=== PATIENT | male | born 1975 | race Caucasian/White ===

== ENCOUNTER 2025-03-06 16:10 | Inpatient (IN) | payer BC, SELFPAY ==
--- NOTE | ~2025-03-06 | US_ITS ---
CLINICAL HISTORY: Swelling; Erythema; Pain; r o DVT Venous duplex ultrasound right lower extremity Comparison: None provided Findings: The visualized deep veins are fully compressible with normal Doppler color flow and spectral tracings. No popliteal cyst. IMPRESSION: 1. Negative for right lower extremity deep vein thrombosis. This document has been electronically signed by: Parker Corey MD on 03/06/2025 21:13:51
[2025-03-06 16:34] VITALS: BP 137/75; PULSE 85; RESP 20; TEMP 36.9; O2SAT 97; BMI 28.5
--- NOTE | 2025-03-06 16:35 | ED_ITS ---
HPI - Skin/Abscess/Foreign Bdy General Chief complaint: Skin/Abscess/Foreign Body Stated complaint: Insect bite to R leg/sent from Time Seen by Provider: 03/06/25 20:04 Source: patient Mode of arrival: ambulatory Limitations: no limitations History of Present Illness ED Provider: Pepito RAZA HPI narrative: The patient is a 49-year-old otherwise healthy male presenting to the ED for evaluation of erythema, swelling, and tenderness of the right lower extremity. Patient reports he is from [place], travels for work, he was in [place] from 02/22 to 02/24 during which time he was bit by an unknown insect and developed erythema, swelling, and pain in the right medial ankle. Patient reports over the past 10 days the erythema, swelling, and pain has increased significantly, on patient was seen at urgent care and started on Keflex. The patient reports no improvement in symptoms and on Wednesday was started on Bactrim. The patient reports despite taking both antibiotics his symptoms have continued to worsen and he is now experiencing pain, erythema, swelling, and tenderness advancing up the medial aspect of the right leg to the right proximal thigh. The patient denies any associated fever/chills, nausea, vomiting, or other systemic complaint. The patient denies recent injury but does fly often for work. Related Data Allergies Allergy/AdvReac Type Severity Reaction Status Date / Time No Known Allergies Allergy Verified 03/06/25 16:37 Review of Systems 2 Review of Systems: Yes all other systems are reviewed and are negative PMFSH Social History Social History Smoked in Last 30 Days: No Use of substances other than those prescribed or required for medical reasons: No Advance Directives: No Advance Directives Information Provided: Yes Physical Exam 2 Vital Signs: Vital Signs: Last Vital Signs Temp 98.3 F 03/06/25 19:42 Pulse 52 03/06/25 19:42 Resp 16 03/06/25 19:42 BP 141/86 H 03/06/25 19:42 Pulse Ox 99 03/06/25 19:42 O2 Del Method Room Air 03/06/25 19:42 BMI result Body Mass Index 28.5 CONSTITUTIONAL: The patient appears non-toxic, well nourished and in no acute distress. Vital signs as documented. HEAD: Atraumatic, normocephalic. EYES: EOMs grossly intact, pupils equal, conjunctiva clear, no exudate. ENT: Nares patent, no discharge. Airway patent, no audible stridor, visible mucosa is pink and moist without noted lesions. NECK: trachea is midline, no obvious masses or gross abnormalities. CHEST: Symmetric movement, normal appearance. LUNGS: Non-labored work of breathing. CARDIAC: No evidence of hypoperfusion. ABDOMEN: Nondistended, no obvious injury. : Deferred. EXTREMITIES: There is marked erythema of the right medial ankle, calf, and thigh with associated tenderness. There is swelling of the right ankle and foot with a single approximate 1 cm intact bulla without purulence noted to the medial ankle just proximal to the medial malleolus, and a ruptured approximately 7mm bulla slightly inferior and posterior to the intact bulla. Distal CSM is intact,, 2+ DP/PT pulses. Moves all extremities spontaneously without reported pain. No obvious injury or deformity noted. NEURO: Alert and oriented x3, CN II-XII appear grossly intact. Cerebellar Functioning grossly intact. Speech clear and appropriate. SKIN: Warm, dry, color appropriate. No rashes or lesions noted. Course Course Course Narrative: This is an RME: Additional HPI, ROS, PE not included below will be deferred to primary provider. RME assessment and note performed by: Kat Cassidy PA-C This is a [id number], with no known medical problems, who presents to the ER with complaints of cellulitis to RLE. Reports that he was in [place] from 02/22-02/24, had several insect bites from these. Pt with extensive cellulitis, has been on Bactrim and Keflex for several days without any relief. Plan: Labs, further ER eval needed. Medications Administered Discontinued Medications Generic Name Dose Route Start Last Admin Trade Name Freq PRN Reason Stop Dose Admin Vancomycin HCl 2,000 mg in 500 mls @ 250 mls/hr 03/06/25 20:23 03/06/25 21:11 Vancomycin/Ns IV 03/06/25 22:22 250 mls/hr ONCE ONE Administration Cefazolin Sodium/Dextrose 2 gm in 50 mls @ 100 mls/hr 03/06/25 20:23 03/06/25 21:22 Ancef IV 03/06/25 20:52 Infused ONCE ONE Infusion Medical Decision Making Medical Decision Making MDM Narrative: 8:44 PM 03/06/2025 (Mike RAZA): The patient is a 49-year-old male presenting to the ED for evaluation of worsening right lower extremity swelling, erythema, and pain which has failed outpatient antibiotics with Bactrim and Keflex. The patient presumes he was bitten by a unknown insect while in [place] between 02/22 and 02/24. Exam reveals swelling, erythema, and tenderness/pain of the medial aspect of the entire right lower extremity to the level of the proximal thigh. Patient has no associated systemic symptoms. Patient's laboratory evaluation shows elevated ESR and CRP, however there is no leukocytosis, significant anemia, electrolyte abnormality, CECELIA, or lactic acidosis. Due to the patient not witnessing a bite, and tenderness advancing of the medial thigh, without fever, leukocytosis, or lactic acidosis, we will obtain ultrasound to rule out DVT. Additionally we will initiate IV antibiotic therapy with vancomycin and cefazolin. The patient has been advised that due to his failure of outpatient antibiotic therapy, admission and IV antibiotics with Infectious Disease consultation is recommended. The patient appears initially hesitant to follow these recommendations, advising he is to return to [place] on , and has work to complete for he leaves. Patient was educated on risks of failure to effectively treat this condition, including ulceration, osteomyelitis, need for partial amputation, decreased quality of life, and . Patient stated he understood these risks, is amenable to IV antibiotics and ultrasound in the ED tonight, however states he will need more time to decide if he is able to agree to the recommendation for admission. If patient ultimately refuses admission he will be discharged against medical advice. 9:50 PM 03/06/2025 (Mike RAZA): The patient's ultrasound is negative for DVT. Patient will complete IV antibiotics and we will reassess plan for disposition. Admission/Observation Consideration of admission/observation: Escalation of care including admission/observation considered Lab Data MDM Lab Attestation statement: I reviewed the patient's lab results. 03/06/25 17:43 03/06/25 17:43 Labs: Lab Results 03/06/25 Range/Units 17:43 WBC 8.4 (4.8-10.8) X10*3/uL RBC 4.20 L (4.60-5.80) X10*6/uL Hgb 13.6 L (14.0-18.0) g/dl Hct 39.2 L (42.0-52.0) % MCV 93.3 (80.0-98.0) fL MCH 32.4 (27.0-33.0) pg MCHC 34.7 (31.0-36.0) g/dl RDW 12.9 (11.0-16.0) % Plt Count 203 (160-400) X10*3/uL MPV 10.0 (9.4-12.4) fL Immature Gran % (Auto) 0.2 (0.0-0.4) % Neut % (Auto) 70.5 (45-73) % Lymph % (Auto) 16.7 L (20-40) % Mcpherson % (Auto) 12.2 H (2-11) % Eos % (Auto) 0.0 (0-4) % Baso % (Auto) 0.4 (0-2) % Lymph # (Auto) 1.4 (1.2-4.9) X10*3/uL Mcpherson # (Auto) 1.0 (0.1-1.2) X10*3/uL Eos # (Auto) 0.0 (0.0-0.4) X10*3/uL Baso # (Auto) 0.0 (0.0-0.2) X10*3/uL Abs Immat Gran (auto) 0.02 (0.00-0.03) X10*3/uL Absolute Neuts (auto) 5.9 (2.0-8.3) x10*3/uL Absolute Nucleated RBC 0.000 (0.0-0.012) X10*3/uL Nucleated RBC % (auto) 0.0 (0.0-0.2) /100WBC ESR 25 H (0-15) MM/HR Sodium 139 (135-145) mmol/L Potassium 4.4 (3.3-5.1) mmol/L Chloride 105 (96-108) mmol/L Carbon Dioxide 27 (22-29) mmol/L Anion Gap 11 L (12-20) BUN 11 (9-16) mg/dL Creatinine 1.00 (0.5-1.4) mg/dL Estim Creat Clear Calc 111.3 Estimated GFR > 60 Random Glucose 94 (60-115) mg/dL Lactic Acid 0.8 (0.5-2.0) mmol/L Calcium 9.0 (8.4-10.2) mg/dL Total Bilirubin 0.5 (0.0-1.0) mg/dL Direct Bilirubin 0.2 (0.0-0.5) mg/dL AST 27 (5-37) U/L ALT 32 (0-40) U/L Alkaline Phosphatase 67 (39-117) U/L C-Reactive Protein 10.47 H (< or = 0.50) mg/dL Total Protein 6.9 (6.5-8.0) g/dL Albumin 4.3 (3.5-5.0) g/dL Radiology Impression Discussion of test interpretation with radiology: I have reviewed the radiologist's reading. Radiologist Impression: CLINICAL HISTORY: Swelling; Erythema; Pain; r o DVT Venous duplex ultrasound right lower extremity Comparison: None provided Findings: The visualized deep veins are fully compressible with normal Doppler color flow and spectral tracings. No popliteal cyst. IMPRESSION: 1. Negative for right lower extremity deep vein thrombosis. This document has been electronically signed by: Parker Corey MD on 03/06/2025 21:13:51 Discharge Plan Discharge Clinical Impression: Cellulitis, Failure of outpatient treatment Patient Disposition: Admitted As Inpatient Print Language: Nigerian
[2025-03-06 17:52] LABS: MANUAL DIFF FLAG NO
[2025-03-06 17:54] LABS: Hematocrit 39.2 % (42.0-52.0); Hemoglobin 13.6 g/dl (14.0-18.0); Imm Gran Abs Auto 0.02 X10*3/uL (0.00-0.03); Imm Gran Pct Auto 0.2 % (0.0-0.4); Lymphocytes Absolute Auto 1.4 X10*3/uL (1.2-4.9); Mean Corpuscular HGB Conc 34.7 g/dl (31.0-36.0); Mean Corpuscular Hemoglobin 32.4 pg (27.0-33.0); Mean Corpuscular Volume 93.3 fL (80.0-98.0); NRBC Abs Auto 0.000 X10*3/uL (0.0-0.012); NRBC Pct Auto 0.0 /100WBC (0.0-0.2); Platelet Count 203 X10*3/uL (160-400); Red Blood Count 4.20 X10*6/uL (4.60-5.80); White Blood Count 8.4 X10*3/uL (4.8-10.8)
[2025-03-06 18:06] LABS: Alanine Aminotransferase 32 U/L (0-40); Albumin Level 4.3 g/dL (3.5-5.0); Alkaline Phosphatase 67 U/L (39-117); Anion Gap 11 (12-20); Aspartate Amino Transferase 27 U/L (5-37); Blood Urea Nitrogen 11 mg/dL (9-16); Calcium 9.0 mg/dL (8.4-10.2); Carbon Dioxide 27 mmol/L (22-29); Chloride 105 mmol/L (96-108); Creatinine Clr Calc Pharmacy 111.3; Estimated Glomerular Filt Rate > 60; Potassium 4.4 mmol/L (3.3-5.1); Sodium 139 mmol/L (135-145); Total Protein 6.9 g/dL (6.5-8.0)
--- OUTSIDE RECORDS SUMMARY | 2025-03-06 19:39 | XMS_ITS | Continuity of Care Document ---
Author Organization [facility] Address [address] [place] [address] Phone [phone] Allergies and adverse reactions Active Allergies Criticality Reaction Severity Comments Date No Known Propensity To Adverse Reactions Unable to assess criticality 02/11/2021 Immunizations CPT Code Status Date Vaccine Lot # [id number] Given 02/19/2019 Influenza Virus Vaccine, Split, Preserv Free, Intradermal Use Vital Signs Date Vital Result Comment 06/26/2019 10:15am Height 72 inches Body Temperature 96.0 F BP Systolic 138 mmHg BP Diastolic 98 mmHg
--- OUTSIDE RECORDS SUMMARY | 2025-03-06 19:39 | XMS_ITS | Encounter Summary ---
Author Organization [facility] Address [address] [place] [address] Care Team Providers Care Special Police Officer Name Role Phone No, Physician Primary Care Provider Patel Olmedo MD Primary Care Provider [phone] Encounter Details Date Type Department Care Team (Latest Contact Info) Description 02/10/2018 Transcribe Orders [facility] [address] [place] [address] Nikki Bran, CUSTOD[facility] [employer] [address], [place] [id number] Swelling of knee joint, unspecified laterality (Primary Dx) Social History Tobacco Use Types Packs/Day Years Used Date Smoking Tobacco: Never Smokeless Tobacco: Never Alcohol Use Standard Drinks/Week Comments Yes 0 (1 standard drink = 0.6 oz pur e alcohol) Sex and Gender Information Value Date Recorded Sex Assigned at Not on file Legal Sex Male 7:35 AM EDT Gender Identity Male 02/17/2018 4:25 PM EDT Sexual Orientation Straight 02/17/2018 4: 25 PM EDT documented as of this encounter Plan of Treatment Upcoming Encounters Date Type Department Care Team (Late st Contact Info) Description 03/12/2025 9:45 AM EDT Office Visit [facility] [address] [place] [id number] Patel Owen MD [address] [place], [place] [id number] documented as of this encounter Visit Diagnoses Diagnosis Swelling of knee joint, unspecified laterality- Primary documented in this encounter Care Teams Special Police Officer Relationship Specialty Start Date End Date No, Physician [facility] PCP - General 07/08/16 07/12/23 Patel Owen MD [address] [place] [address] PCP - General Family Medicine 07/13/23 documented as of this encounter
--- OUTSIDE RECORDS SUMMARY | 2025-03-06 19:39 | XMS_ITS | Clinical Summary ---
Author Organization [facility] Address [id number] [place] [address] Phone Care Team Providers Care Hand Bulldozer Name Role Phone Unavailable Primary Care Provider Unavailabl e Allergies No known active allergies Medications * This document contains information received from the source organization and may not represent a complete record from that organization. No known medications Active Problems Problem Noted Date Diagnosed Date Impacted cerumen of right ear 11/25/2022 Assessment & Plan (11/25/2022 9:25 AM EDT): Will irrigate right ear in clinic today. Screening for colon cancer 11/25/2022 Assessment & Plan (11/25/2022 9:25 AM EDT): Patient will return for CPE and have colonoscopy referral then. Concussion with no loss of consciousness 023 Assessment & Plan (11/25/2022 9:25 AM EDT): Reviewed supportive care measures Resolved Problems Problem Noted Date Diagnosed Date Resolved Date Functional diarrhea 11/25/2020 11/26/19 23 Overview (11/25/2020): Has traveled Checking bloodwork stool studies Imodium and probiotic Assessment & Plan (11/25/2020 3:37 PM EDT): Had traveled recently Checking bloodwork and stool studies Probiotic and imodium. Quadriceps weakness 04/19/2020 11/26/19 23 Difficulty in walking 09/12/20192022 Immunizations Immunization Administration Dates Next Due Influenza, Quadrivalent, PF (i.e. Fluzone, FluLaval, Afluria, Fluarix) 03/07/2020,03/12/2019,04/09/2018 Family History Relation Status Comments Father Alive Mother Alive Social History Tobacco Use Types Packs/Day Years Used Date Smoking Tobacco: Never Smokeless Tobacco: Never Tobacco Cessation:Counseling Given: Not Answered Alcohol Use Standard Drinks/Week Comments Yes 2 (1 standard drink = 0.6 oz pur e alcohol) PHQ-2 Answer Date Recorded Patient Health Questionnaire-2 Score 0 11/25/2022 Sex and Gender Information Value Date Recorded Sex Assigned at Not on file Legal Sex Male 12:43 PM CDT Gender Identity Not on file Sexual Orientation Not on file Last Filed Vital Signs Vital Sign Reading Time Taken Comments Blood Pressure 112/82 11/25/2022 8:50 AM EDT Pulse 69 11/25/2022 8:50 AM EDT Temperature 36.3 C (97.3 F) 11/25/2022 8:50 AM EDT Respiratory Rate 20 11/25/2022 8:50 AM EDT Oxygen Saturation 97% 11/25/2022 8:50 AM EDT Inhaled Oxygen Concentration - - Weight 98.9 kg (218 lb) 11/25/2022 8:50 AM EDT Height 185.4 cm (6' 1 ) 11/25/2022 8:50 AM EDT Body Mass Index 28.76 11/25/2022 8:50 AM EDT Plan of Treatment Health Maintenance Due Date Last Done Comments CRC: CT Colonography 1976 CRC: Cologuard 1976 CRC: Colonoscopy 1976 CRC: Done/Done-CPS 1976 CRC: Sigmoidoscopy 1976 CRC: iFOB/FIT 1976 Colorectal Cancer Screening 1976 HIV Screening 1976 Hepatitis C Screening 1976 DTaP,Tdap,and Td Vaccines (1 - Tdap) 11/12/1995 Hepatitis B Vaccines (1 of 3 - 19+ 3-dose series) 11/12/1995 Type 2 Diabetes Screening 01/11/2022 01/11/2019 Lipid Disorders Screening 01/12/2024 01/11/2019 COVID-19 Vaccine ( - 2023-2 5 season) 2025 Influenza Vaccine (#1) 2025 0, 03/12/2019, 04/09/2018 HIB Vaccines Aged Out No longer eligi ble based on patient's age to complete this topic Hepatitis A Vaccines Aged Out No long er eligible based on patient's age to complete this topic Meningococcal B Vaccine Aged Out No l onger eligible based on patient's age to complete this topic Meningococcal Vaccine Aged Out No jorge a aris eligible based on patient's age to complete this topic Pneumococcal Vaccine Pediatrics (0-5 Yrs) and At-Risk Patients (6-49Yrs) Aged Out No longer kate gible based on patient's age to complete this topic Procedures Procedure Name Priority Date/Time Associated Diagnosis Comments HEMOGLOBIN A1C Routine 01/11/2019 6:17 AM CDT LIPID PANEL WITH REFLEX TO DIRECT LDL Routine 01/11/2019 6:17 AM CDT from Last 3 Months or Most Recently Relevant to Health Maintenance Results * Hemoglobin A1c (01/11/2019 6:17 AM CDT) HGBA1C 5.3 4.0 - 6.4 % Comment: According to the recommendations of the [employer]: A1C% <5.7% Absence of diabetes A1C% 5.7 to 6.4% Increased risk for diabetes (prediabetes) A1C% > or = 6.5% Suitable for diagnosis of diabetes Currently no consensus exists for use of HgbA1C% for the diagnosis of diabetes in children. Standards of Medical Care in Diabetes -2015. 01/11/2019 6:17 AM CDT us Historical Provider LAB BLOOD ORDERABLES Lori l Result * (ABNORMAL) Lipid panel (01/11/2019 6:17 AM CDT) CHOLESTEROL 236.0(H) 100.0 - 199.0 mg/dL HDL 71.0 40.0 - 125.0 mg/dL TRIGLYCERIDE 193.0(H) 40.0 - 150.0 mg/dL Comment: If the triglycerides are over 400 mg/dL, a direct measured LDL will be performed. If the triglycerides are over 1293 mg/dL an LDL will not be performed. CHOL/HDL 3.3 3.2 - 5.0 Ratio TRIG/HDL RATIO 2.7(H) 0.0 - 2.0 01/11/2019 6:17 AM CDT Historical Provider LAB BLOOD ORDERABLES Lori l Result from Last 3 Months or Most Recently Relevant to Health Maintenance Insurance [employer] [facility] [place]
--- OUTSIDE RECORDS SUMMARY | 2025-03-06 19:39 | XMS_ITS | Clinical Summary ---
Author Organization [facility] Address [address] [place] [address] Care Team Providers Care Boarding Specialist Name Role Phone Patel Owen MD Primary Care Provider +1- [phone] Allergies No known active allergies Medications syringe,safety, disposal unit 3 mL SyrgIndications :Low testosterone in male 1 each by Miscellaneous route every 14 (fourteen) days . 100 each 01/03/20 24 Active safety needles 18 gauge x 1 NdleIndications :Low testosterone in male 1 each by Miscellaneous route every 14 (fourteen) days . 100 each 01/03/20 24 Active safety needles 23 gauge x 1 NdleIndications :Low testosterone in male 1 each by Miscellaneous route every 14 (fourteen) days . 50 each 02/27/20 25 Active testosterone cypionate (DEPOTESTOTERON E CYPIONATE) 100 mg/mL injectionIndica tions:Hypogonad ism in male,Low testosterone in male Inject 1.5 mL (150 mg total) into the shoulder, thigh, or buttocks every 14 (fourteen) days (Days supply per fill: 90) . 10 mL 03/02/20 25 025 Active safety needles 23 gauge x 1 NdleIndications :Low testosterone in male 1 each by Miscellaneous route every 14 (fourteen) days . 50 each 11/01/19 25 025 Discontinue d(Reorder (Suppress CancelRx Message to Pharmacy)) testosterone cypionate (DEPOTESTOTERON E CYPIONATE) 100 mg/mL injectionIndica tions:Hypogonad ism in male,Low testosterone in male Inject 1.5 mL (150 mg total) into the shoulder, thigh, or buttocks every 14 (fourteen) days (Days supply per fill: 90) . 10 mL 11/10/19 25 025 Discontinue d(Reorder (Suppress CancelRx Message to Pharmacy)) testosterone cypionate (DEPOTESTOTERON E CYPIONATE) 100 mg/mL injectionIndica tions:Hypogonad ism in male,Low testosterone in male Inject 1.5 mL (150 mg total) into the shoulder, thigh, or buttocks every 14 (fourteen) days (Days supply per fill: 90) . 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 According to him no swelling, no pain. I have reviewed his physical therapy notes and he has been doing therapy with no problem. His initial inflammatory markers done on the last visit with me were normal. At this point he has completed more than 2 months of oral antibiotic with doxycycline p.o. considering stability of symptoms and duration of antimicrobial therapy I think we can stop the p.o. antimicrobial and observe symptomatically. I have explained that there is a chance of recurrence. However, based on his clinical stability and normal inflammatory markers I do not see a need to continue oral doxycycline. Plan -Stop doxycycline. Follow-up with infectious diseases as needed. Assessment & Plan (04/05/2020 12:34 PM EDT): Postoperative and recurrent septic arthritis of the right knee. Current clinical course seems to be consistent with MRSE right knee infection. This is considering the indolent clinical course as well as negative synovial fluid cultures. Having said that, without a positive culture it is hard to say 100% that this is the actual cause of infection. The patient is doing much better, he is not not experiencing any knee pain or knee swelling. At this point he has almost received 4 weeks of doxycycline therapy. Based on orthopedics note, on his last debridement there was removal of some of the old suture material on his knee. I have discussed with the patient that due to persistence of some retained foreign material on his knee there is a risk of infection recurrence. We do not have any clinical tool to predict recurrence. We have also discussed the data on oral antimicrobials for the treatment of septic arthritis and emphasized that he is on a highly bioavailable antibiotic. However, due to recurrence and based on clinical data he may require a longer therapy than what he has completed at this time. Plan -As the patient is doing well, I do not think there is any point on pursuing IV antibiotics at this point. -I will obtain CRP and sedimentation rate to track inflammation. -Continue doxycycline 100 mg twice daily for 1 more month. I have discussed with the patient that depending on how he does clinically we may consider 2 to 3 months of oral antibiotic therapy total. Encounters Date Type Department Care Team Description 02/27/2025 Refill [facility] [address] [address] Patel Owen MD Hypogonadism in male; Low testosterone in male 02/26/2025 Refill [facility] [address] [facility] [address] [place] [address] Patel Owen MD Low testosterone in male 02/21/2025 Documentation [facility] [address] [facility] [address] [place] [address] Marcela Ga CMA 02/13/2025 Refill [facility] [address] [place] [address] Patel Owen MD Hypogonadism in male; Low testosterone in male from Last 3 Months Immunizations Immunization Administration Dates Next Due INFLUENZA IIV4 6MO OR > FLUARIX/FLUZONE/AFLURIA 03042 03/07/2020,03/12/2019 Influenza, Injectable, Quadrivalent, Preservativ e Free 04/09/2018 Family History Medical History Relation Comments Heart attack Father Relation Status Comments Father Social History Tobacco Use Types Packs/Day Years Used Date Smoking Tobacco: Never Smokeless Tobacco: Never Tobacco Cessation:Counseling Given: Not Answered Alcohol Use Standard Drinks/Week Comments Yes 0 (1 standard drink = 0.6 oz pur e alcohol) Overall Financial Resource Strain (CARDIA) Answe r Date Recorded How hard is it for you to pa y for the very basics like food, housing, medical care, and heating? Not hard at all 07/05/2024 PHQ-2 Answer Date Recorded PHQ-9 Total Score 1 07/05/2024 Hunger Vital Sign Answer Date Recorded Within the past 12 months, y ou worried that your food would run out before you got the money to buy more. Never true 07/05/19 25 Within the past 12 months, t he food you bought just didn't last and you didn't have money to get more. Never true 07/05/2024 PRAPARE - Transportation Answer Date Re corded In the past 12 months, has l ack of transportation kept you from medical appointments or from getting medications? No 06/21 In the past 12 months, has l ack of transportation kept you from meetings, work, or from getting things needed for daily living? No 07/05/2024 Housing Stability Vital Sign Answer Braeden e Recorded In the last 12 months, was t here a time when you were not able to pay the mortgage or rent on time? Patient declined 07/13/19 24 Number of Places Lived in the Last Year Not on f ile 07/13/2023 In the last 12 months, was t here a time when you did not have a steady place to sleep or slept in a long-term (including now)? Patient declined 07/13/2023 Housing Stability Vital Sign Answer Braeden e Recorded In the last 12 months, was t here a time when you were not able to pay the mortgage or rent on time? No 07/05/2024 Number of Times Moved in the Last Year Not on fi le 07/05/2024 At any time in the past 12 m [facility], were you homeless or living in a long-term (including now)? No 07/05/2024 Sex and Gender Information Value Date Recorded Sex Assigned at Not on file Legal Sex Male 7:35 AM EDT Gender Identity Male 02/17/2018 4:25 PM EDT Sexual Orientation Straight 02/17/2018 4: 25 PM EDT Last Filed Vital Signs Vital Sign Reading Time Taken Comments Blood Pressure 138/88 11/09/2024 8:08 AM EDT Pulse 57 11/09/2024 8:08 AM EDT Temperature 36.8 C (98.2 F) 09/23/2023 9:42 AM EDT Respiratory Rate 18 04/09/2023 3:10 PM EDT Oxygen Saturation 96% 11/09/2024 8:08 AM EDT Inhaled Oxygen Concentration - - Weight 97.7 kg (215 lb 6.4 oz) 11/09/2024 8:08 A M EDT Height 188 cm (6' 2 ) 11/09/2024 8:08 AM EDT Body Mass Index 27.66 11/09/2024 8:08 AM EDT Plan of Treatment Upcoming Encounters Date Type Department Care Team (Late st Contact Info) Description 03/12/2025 9:45 AM EDT Office Visit [facility] [address] [place] [phone] Patel Owen MD [address] [place] [address] Health Maintenance Due Date Last Done Comments CT Colonography 1976 Colonoscopy 1976 Fecal occult blood test (FOBT,FIT) 1976 Flexible sigmoidoscopy 1976 COVID-19 Vaccine ( season) 2025 Influenza Vaccine (#1) 2025 , 02/21/2020, 03/12/2019, Additional history exists Depression Screening/Follow-Up (PHQ-2/9) 07/05/2025 07/05/2024 Hepatitis C Screening 09/07/2025 Postpo luca from 1994 (Patient Refused) Tetanus: Every 10yrs 09/07/2025 06/21/2011, 07/03/19 11 Postponed from 06/21/2021 (Patient Refused) Wellness Visit 09/07/2025 09/07/2024, 07/13/2023 PSA Level 09/07/2026 09/07/2024, 09/17/2023 Colorectal Cancer Screening/Monitoring 09/22/2026 Fecal DNA 09/22/2026 09/23/2023 Orthopox Vaccine Completed 06/25/2011, 04/09/2011 HIV Screening Completed 11/12/2023 Pneumococcal Vaccine: Ped or At-Risk Aged Out No longer eligible based on patient's age to complete this topic Procedures Procedure Name Priority Date/Time Associated Diagnosis Comments PSA, TOTAL AND FREE Routine 09/07/2024 10:28 AM EDT Hyperlipidemia, unspecified hyperlipidemia type Annual physical exam HIV 1/2 SCREEN (4TH GENERATION) Routine 11/12/2023 12:12 PM EDT Possible exposure to STD COLOGUARD Routine 09/23/2023 7:24 AM EDT Screening for colon cancer from Last 3 Months or Most Recently Relevant to Health Maintenance Results * PSA, Total and Free (09/07/2024 10:28 AM EDT) Psa, Total (Quest) 1.0 < OR = 4.0 ng/mL [facility] Psa, Free (Quest) 0.3 ng/mL [facility] Psa Percent Free (Quest) 30 >25 % (calc) [facility] Comment: PSA(ng/mL) Free PSA(%) Estimated(x) Probability of Cancer(as%) 0-2.5 (*) Approx. 1 2.6-4.0(1) 0-27(2) 24(3) 4.1-10(4) 0-10 56 11-15 28 16-20 20 21-25 16 >or =26 8 >10(+) N/A >50 References:(1)Edgardoona et al.:Urology 60: 469-474 (2002) (2)Catalona et al.:J.Urol 168: 922-925 (2001) Free PSA(%) Sensitivity(%) Specificity(%) < or = 25 85 19 < or = 30 93 9 (3)Edgardoona et al.:MIGEL 277: 0862-4495 (1996) (4)Catalona et al.:MIGEL 279: 1920-7296 (1998) (x)These estimates vary with age, ethnicity, family history and LESLIE results. (*)The diagnostic usefulness of % Free PSA has not been established in patients with total PSA below 2.6 ng/mL (+)In men with PSA above 10 ng/mL, prostate cancer risk is determined by total PSA alone. The Total PSA value from this assay system is standardized against the equimolar PSA standard. The test result will be approximately 20% higher when compared to the WHO-standardized Total PSA (Siemens assay). Comparison of serial PSA results should be interpreted with this fact in mind. PSA was performed using the [employer] [place] Immunoassay method. Values obtained from different assay methods cannot be used interchangeably. PSA levels, regardless of value, should not be interpreted as absolute evidence of the presence or absence of disease. Blood BLOOD SPECIMEN / Unknown 09/07/2024 10:28 AM EDT 09/07/2024 10:29 AM EDT Narrative [facility] - 09/08/2024 2:37 PM EDT FASTING:NO FASTING: NO us Evette Parikh DO LAB BLOOD ORDERABLES Final Result [address] [address], * HIV Antibody (HIV1/HIV2) (11/12/2023 12:12 PM EDT) HIV 1-2 Screen Negative Negative 11/12/2023 5:26 PM EDT [facility] Blood BLOOD SPECIMEN / Unknown Venipuncture / Unknown 11/12/2023 12:12 PM EDT 11/12/2023 12:12 PM EDT Narrative [facility] - 11/12/2023 5:26 PM EDT This assay screens for the presence of HIV-1, HIV-2 antibodies and for the presence of HIV-1 antigen. Test performed using BerylliumAS immunoassay system us Patel Owen MD LAB BLOOD ORDERABLES Final Result [facility] [address] [place] [address] * Cologuard (09/23/2023 7:24 AM EDT) Cologuard Negative Negative 09/30/2023 5:49 PM EDT [facility] (CLIA #:[id number]) Comment: NEGATIVE TEST RESULT. A negative Cologuard result indicates a low likelihood that a colorectal cancer (CRC) or advanced adenoma (adenomatous polyps with more advanced pre-malignant features) is present. The chance that a person with a negative Cologuard test has a colorectal cancer is less than 1 in 1500 (negative predictive value >99.9%) or has an advanced adenoma is less than 5.3% (negative predictive value 94.7%). These data are based on a prospective cross-sectional study of 10,000 individuals at average risk for colorectal cancer who were screened with both Cologuard and colonoscopy. (Bree Adam et al, N Engl J Med 2014;370(14):8715-6573) The normal value (reference range) for this assay is negative. COLOGUARD RE-SCREENING RECOMMENDATION: Periodic colorectal cancer screening is an important part of preventive healthcare for asymptomatic individuals at average risk for colorectal cancer. Following a negative Cologuard result, the [place] Cancer Society and U.S. Multi-Society Task Force screening guidelines recommend a Cologuard re-screening interval of 3 years. References: [place] [employer] Guideline for Colorectal Cancer Screening: https://www.cancer.org/cancer/fjnhy-ehqvaq-tyxgfh/qgehmdoio-lrkrivyjv-aiqffox/ac s-rec ommendations.html.; Ronni PAL, Remi CUI, eRinaldo PotterK, Colorectal Cancer Screening: Recommendations for Physicians and Patients from the U.S. Multi-Society Task Force on Colorectal Cancer Screening , Am J Gastroenterology 2017; 112:0396-5005. TEST DESCRIPTION: Composite algorithmic analysis of stool DNA-biomarkers with hemoglobin immunoassay. Quantitative values of individual biomarkers are not reportable and are not associated with individual biomarker result reference ranges. Cologuard is intended for colorectal cancer screening of adults of either sex, 45 years or older, who are at average-risk for colorectal cancer (CRC). Cologuard has been approved for use by the U.S. FDA. The performance of Cologuard was established in a cross sectional study of average-risk adults aged 50-84. Cologuard performance in patients ages 45 to 49 years was estimated by sub-group analysis of near-age groups. Colonoscopies performed for a positive result may find as the most clinically significant lesion: colorectal cancer [4.0%], advanced adenoma (including sessile serrated polyps greater than or equal to 1cm diameter) [20%] or non- advanced adenoma [31%]; or no colorectal neoplasia [45%]. These estimates are derived from a prospective cross-sectional screening study of 10,000 individuals at average risk for colorectal cancer who were screened with both Cologuard and colonoscopy. (Bree Salazar. et al, N Engl J Med 2014;370(14):0804-9775.) Cologuard may produce a false negative or false positive result (no colorectal cancer or precancerous polyp present at colonoscopy follow up). A negative Cologuard test result does not guarantee the absence of CRC or advanced adenoma (pre-cancer). The current Cologuard screening interval is every 3 years. ([place] [employer] Society and U.S. Multi-Society Task Force). Cologuard performance data in a 10,000 patient pivotal study using colonoscopy as the reference method can be accessed at the following location: www.[employer]otomo/results. Additional description of the Cologuard test process, warnings and precautions can be found at www.DDStocksogTakeacoderrd.com. Stool specimen (specimen) RECTUM STRUCTURE / Unknown 09/23/2023 7:24 AM EDT 09/24/2023 11:53 AM EDT us Patel Owen MD LAB BLOOD ORDERABLES Final Result [facility] (CLIA #:[id number]) [address] [place], [place] [id number], from Last 3 Months or Most Recently Relevant to Health Maintenance [place] [address] [place] [address] [facility]/PREF/HMO/PPO Care Teams Boarding Specialist Relationship Specialty Start Date End Date Patel Owen MD [address] [facility] [address] [place] [address] PCP - General Family Medicine 07/13/23
--- OUTSIDE RECORDS SUMMARY | 2025-03-06 19:39 | XMS_ITS | Encounter Summary ---
Author Organization [facility] Address [address] [place] [address] Care Team Providers Care Charter Pilot Name Role Phone Patel Owen MD Primary Care Provider +1- [phone] Reason for Visit * Reason Onset Date Comments Medication Refill 02/27/2025 Encounter Details Date Type Department Care Team (Late st Contact Info) Description 02/27/[address] [facility] Primary Care Physicians [address] [place] [address] Patel Owen MD [address] [place] [address] Hypogonadism in male; Low testosterone in male Social History Tobacco Use Types Packs/Day Years [...] place to sleep or slept in a penitentiary (including now)? Patient declined 07/13/2023 Housing Stability Vital Sign Answer Braeden e Recorded In the last 12 months, was t here a time when you were not able to pay the mortgage or rent on time? No 07/05/2024 Number of Times Moved in the Last Year Not on fi le 07/05/2024 At any time in the past 12 m [facility], were you homeless or living in a penitentiary (including now)? No 07/05/2024 Sex and Gender Information Value Date Recorded Sex Assigned at Not on file Legal Sex Male 7:35 AM EDT Gender Identity Male 02/17/2018 4:25 PM EDT Sexual Orientation Straight 02/17/2018 4: 25 PM EDT documented as of this encounter Miscellaneous Notes * Telephone Encounter - Marcela Ga CMA - 03/01/2025 7:46 AM EDT Last Office Visit: 11/09/24 Last Refill: 02/16/25 * Telephone Encounter - Fifi Wilhelm LPN - 02/27/2025 1:10 PM EDT The patient called in to report that his insurance will not pay for his testosterone cypionate. He states there is no diagnose code attached to script. So the insurance denied payment. documented in this encounter Plan of Treatment Upcoming Encounters Date Type Department Care Team (Late st Contact Info) Description 03/12/2025 9:45 AM EDT Office Visit [facility] Primary [facility] Physicians [address] [facility] [address] [place] [address] Patel Owen MD [address] [facility] [address] [place] [address] documented as of this encounter Visit Diagnoses Diagnosis Hypogonadism in male Low testosterone in male documented in this encounter Additional Health Concerns Assessment Noted Time PHQ-9 Depression Total Score: 1 07/05/19 8:10 AM EST PHQ-2 Depression Total Score: 0 07/05/19 8:10 AM EST documented as of this encounter Care Teams Charter Pilot Relationship Specialty Start Date End Date Patel Owen MD [address] [facility] [address] [place] [address] PCP - General Family Medicine 07/13/23 documented as of this encounter
--- OUTSIDE RECORDS SUMMARY | 2025-03-06 19:39 | XMS_ITS | Encounter Summary ---
Author Organization [facility] Address [address] [place] [address] Care Team Providers Care Eyelet Machine Operator Name Role Phone No, Physician Primary Care Provider Patel Olmedo MD Primary Care Provider +1- [phone] Reason for Referral * Evaluate and Treat (Routine) - Closed Specialty Diagnoses / Procedures Referred By Contac t Referred To Contact Infectious Diseases Diagnoses Infection of knee (HCC) Lokesh Alas MD [address] [place] [address] Phone: tel: fax: [facility] Physicians Infectious Disease [address] [facility] [address] [place] [address] Phone: tel: fax: Referral ID Status Reason Start Date Expiration Date Visits Re quested Visits Authorized [id number] Closed 03/25/2020 03/25/2021 1 1 Encounter Details Date Type Department Care Team (Latest Contact Info) Description 03/25/2020 Transcribe Orders [facility] Physicians Infectious Disease [address] [facility] [address] [place] [id number] Bibi Bowen MA Infection of knee (HCC) (Primary Dx) Social History Tobacco Use Types [...] 9:45 AM EDT Office Visit [facility] Primary Care Physicians [address] [address] Patel Owen MD [address] [address] Scheduled Referrals Name Type Priority Associated Diagnoses Order Schedule Ambulatory referral to Infectious Disease Outpatient Referral Routine Infection of knee (HCC) 1 Occurrences starting 03/25/2020 until 03/25/2021 documented as of this encounter Visit Diagnoses Diagnosis Infection of knee (HCC)- Primary documented in this encounter Care Teams Eyelet Machine Operator Relationship Specialty Start Date End Date No, Physician [facility] PCP - General 07/08/16 07/12/23 Patel Owen MD [address] [address] PCP - General Family Medicine 07/13/23 documented as of this encounter
--- OUTSIDE RECORDS SUMMARY | 2025-03-06 19:39 | XMS_ITS | Clinical Summary ---
Author Organization [facility] Address [address] [place] [address] [place] [address] Care Team Providers Care Vegetable Vendor Name Role Phone Ronnell Kim MD Primary Care Provider Unavai lable Allergies No known active allergies Medications Testosterone Cypionate 100 MG/ML Solution Inject 2 mL under the skin every 14 days. Active fluticasone 50 MCG/ACT Suspension nasal spray SPRAY 2 SPRAYS BY NASAL ROUTE DAILY 48 mL 3 10/26/2023 Active Azelastine HCl 137 MCG/SPRAY Solution nasal spray USE 2 SPRAYS IN EACH NOSTRIL DAILY, INCREASE TO TWICE A DAY NEEDED FOR DRAINAGE. 90 mL 11/12/2023 Active Active Problems No known active problems Family History Medical History Relation Name Comments Hypertension Other Relation Name Status Comments Other Social History Tobacco Use Types Packs/Day Years Used Date Smoking Tobacco: Never Smokeless Tobacco: Never Tobacco Cessation:Counseling Given: Not Answered Alcohol Use Standard Drinks/Week Comments Yes 0.8 (1 standard drink = 0.6 oz p ure alcohol) social Sex and Gender Information Value Date Recorded Sex Assigned at Not on file Legal Sex Male 11:15 AM EST Gender Identity Male 01/13/2018 11:03 AM EDT Sexual Orientation Not on file Last Filed Vital Signs Vital Sign Reading Time Taken Comments Blood Pressure - - Pulse 76 10/21/2023 10:53 AM EDT Temperature - - Respiratory Rate 16 09/28/2023 2:41 PM EDT Oxygen Saturation 96% 10/21/2023 10:53 AM EDT Inhaled Oxygen Concentration - - Weight 99.8 kg (220 lb) 10/21/2023 10:53 AM EDT Height 185.4 cm (6' 1 ) 10/21/2023 10:53 AM EDT Body Mass Index 29.03 10/21/2023 10:53 AM EDT Plan of Treatment Health Maintenance Due Date Last Done Comments HEPATITIS C VIRUS SCREENING 1976 HIV SCREENING DISCUSSION 11/12/1991 LIPID SCREENING 2016 TETANUS 06/21/2021 06/21/2011, 06/2011, 07/03/2010 COLORECTAL CANCER SCREENING DISCUSSION 2021 COVID-19 VACCINE ( season) 2025 INFLUENZA VACCINE (#1) 2025 , 03/12/2019, 02/19/2019, Additional history exists HEP B VACCINE Completed 04/09/2011, 09/20, 07/08/2010 TDAP (ADULT) Completed 06/21/2011, 06/2011, 07/03/2010 PNEUMOCOCCAL VACCINE SERIES Aged Out No longer eligible based on patient's age to complete this topic [facility] Care Teams Vegetable Vendor Relationship Specialty Start Date End Date Prior, Ronnell Fernandez MD PCP - General 11/23/07
[2025-03-06 19:42] VITALS: BP 141/86; PULSE 52; RESP 16; TEMP 36.8; O2SAT 99
[2025-03-06] MEDS: vancomycin/NS 2,000 MG/500 ML PLAST..BAG 250 MG IV (21:11)
--- NOTE | 2025-03-06 23:50 | PM.IMHP ---
History of Present Illness Date of Service: 03/06/25 Attending physician on admission: Bharath Villareal Chief Complaint: Right leg infection Tyler Jones is a very pleasant 49 years old man with significant history of prior events of cellulitis presents to the emergency department complaining of worsening left leg pain, swelling and redness. Patient said that early February he was in [place] and had an insect bite over the left lower leg. Last Wednesday he visited an urgent care and was prescribed with Keflex. On Wednesday, Bactrim was prescribed as the infection was not getting better. He denied any symptoms such as fever, nausea or vomiting. He denied tobacco smoking, alcohol abuse or illicit drug use. In the ED, he was found to have stable vital signs. There are no leukocytosis, bandemia or lactic acidosis. ESR and CRP are both elevated, 25 and 10.47 respectively. There are no significant electrolyte imbalances. Renal function LFTs are normal. Right lower extremity venous ultrasound showed no DVT. ED tx: Vancomycin 2 g IV, Ancef 2 g IV Review of Systems Review of Systems: All 12 systems were reviewed and normal except as noted in HPI. PMFSH Social History Smoked in Last 30 Days: No Use of substances other than those prescribed or required for medical reasons: No Advance Directives: No Advance Directives Information Provided: Yes Meds Allergies Allergy/AdvReac Type Severity Reaction Status Date / Time No Known Allergies Allergy Verified 03/06/25 16:37 Active Medications: Current Medications Acetaminophen (Acetaminophen 325 Mg Tablet) 975 mg PO Q6H PRN PRN Reason: Pain, Mild 1-3,fever,headache Calcium Carbonate (Calcium Carbonate 750 Mg Tab.Chew) 750 mg PO Q4H PRN PRN Reason: Heartburn Enoxaparin Sodium (Enoxaparin Sodium 40 Mg/0.4 Ml Syringe) 40 mg SUBCUT Q24H [facility] Piperacillin Sod/Tazobactam (Sod 3.375 gm/ Sodium Chloride) 50 mls @ 100 mls/hr IV Q6H [facility] Magnesium Hydroxide (Milk Of Magnesia 30 Ml Oral.Susp) 30 ml PO DAILY PRN PRN Reason: Constipation Melatonin (Melatonin 3 Mg Tablet) 6 mg PO BEDTIME PRN PRN Reason: Insomnia Pharmacy Consult (Consult Rx Vancomycin Dosing) 1 each MISCELLANE DAILY PRN PRN Reason: Consult order Sodium Chloride (0.9 % Sodium Chloride Flush 3 Ml Syringe) 3 ml IVFLUSH QSHIFT [facility] Physical Exam Vital Signs and Narrative: Vital Signs: Last Vital Signs Temp 98.3 F 03/06/25 19:42 Pulse 52 03/06/25 19:42 Resp 16 03/06/25 19:42 BP 141/86 H 03/06/25 19:42 Pulse Ox 99 03/06/25 19:42 O2 Del Method Room Air 03/06/25 19:42 BMI result Body Mass Index 28.5 Constitutional - Awake and Alert, No apparent distress HEENT - PERRLA, EOMI Heart - S1S2, RRR, No edema Lungs - Normal lung expansion, Normal respiratory effort, No respiratory distress, CTA bilaterally Abdomen - NT / ND; +BS; No rebound or guarding Extremities - Right lower extremity: There is erythema involving the lower 3rd of the leg, extending proximally to the medial aspect of the thigh. There is erythema, warmth and tender to palpation and one intact blister like lesion and one ruptured blister noted over the anterior lower leg without significant fluctuance or crepitus. [address] LN over upper medial aspect of the thigh and groin. - deferred (per patient, scrotum not affected). Musculoskeletal - Normal inspection, normal ROM Skin - Warm/Dry Neurological - Alert & oriented x3. Moving all extremities spontaneously. Normal speech. Psychological - Appropriate affect Results Labs 03/06/25 17:43 03/06/25 17:43 Labs: Laboratory Results - last 24 hr 03/06/25 17:43 MCV 93.3 MCH 32.4 MCHC 34.7 RDW 12.9 Plt Count 203 MPV 10.0 Immature Gran % (Auto) 0.2 Neut % (Auto) 70.5 Lymph % (Auto) 16.7 L [place] % (Auto) 12.2 H Eos % (Auto) 0.0 Baso % (Auto) 0.4 Lymph # (Auto) 1.4 [place] # (Auto) 1.0 Eos # (Auto) 0.0 Baso # (Auto) 0.0 Abs Immat Gran (auto) 0.02 Absolute Neuts (auto) 5.9 Absolute Nucleated RBC 0.000 Nucleated RBC % (auto) 0.0 ESR 25 H Anion Gap 11 L Estim Creat Clear Calc 111.3 Estimated GFR > 60 Random Glucose 94 Lactic Acid 0.8 Calcium 9.0 Total Bilirubin 0.5 Direct Bilirubin 0.2 AST 27 ALT 32 Alkaline Phosphatase 67 C-Reactive Protein 10.47 H Total Protein 6.9 Albumin 4.3 Assessment and Plan (1) Cellulitis of right lower extremity: Status: Acute (2) Failure of outpatient treatment: Status: Acute Plan Tyler Jones is a 49 y/o man who presents with: Right lower extremity cellulitis after insect bite. ?abscess at the site of the insect bite. Failed Bactrim and Keflex. Cellulits is tracking proximally (upper thigh). Empiric IV antibiotic therapy with Zosyn and vancomycin. Elevate extremity. Pain control with oxycodone as needed. Check MRSA nares. Will obtain surgery consult. Blood cultures obtained - will follow results. Code status: Full DVT prophylaxis: Lovenox Patient will need hospitalization for at least 2 midnights due to extensive cellulitis of the right lower extremity that failed outpatient treatment. Quality Stroke Does the patient have a stroke diagnosis?: No VTE Prior VTE?: No VTE Risk Level:: Medical - moderate - high VTE Device Contraindication: Treatment Not Indicated VTE Drug Contraindication: N/A - Med Ordered
[2025-03-07] VITALS (8 sets, daily range): BP systolic 115–139; BP diastolic 64–82; PULSE 71–81; RESP 16–18; TEMP 36.4–37.2; O2SAT 96–98
[2025-03-07] MEDS: 0.9 % Sodium Chloride Flush 3 ML SYRINGE IVFLUSH ×4 (00:24→21:27)
[2025-03-07 05:30] LABS: MANUAL DIFF FLAG NO
[2025-03-07 05:37] LABS: Hematocrit 39.3 % (42.0-52.0); Hemoglobin 13.4 g/dl (14.0-18.0); Imm Gran Abs Auto 0.03 X10*3/uL (0.00-0.03); Imm Gran Pct Auto 0.4 % (0.0-0.4); Lymphocytes Absolute Auto 1.4 X10*3/uL (1.2-4.9); Mean Corpuscular HGB Conc 34.1 g/dl (31.0-36.0); Mean Corpuscular Hemoglobin 31.9 pg (27.0-33.0); Mean Corpuscular Volume 93.6 fL (80.0-98.0); NRBC Abs Auto 0.000 X10*3/uL (0.0-0.012); NRBC Pct Auto 0.0 /100WBC (0.0-0.2); Platelet Count 205 X10*3/uL (160-400); Red Blood Count 4.20 X10*6/uL (4.60-5.80); White Blood Count 7.2 X10*3/uL (4.8-10.8)
[2025-03-07 05:53] LABS: Anion Gap 10 (12-20); Blood Urea Nitrogen 9 mg/dL (9-16); Calcium 8.6 mg/dL (8.4-10.2); Carbon Dioxide 25 mmol/L (22-29); Chloride 108 mmol/L (96-108); Creatinine Clr Calc Pharmacy 114.8; Estimated Glomerular Filt Rate > 60; Potassium 3.8 mmol/L (3.3-5.1); Sodium 139 mmol/L (135-145)
--- NOTE | 2025-03-07 06:33 | HO.NURTONUR ---
49 year old male A&Ox 4 with NKA comes in reporting swelling, redness and tenderness to RLE after getting insect bite while in [place] 02/23-02/24. Failed two PO abx, admitted for IV ABX. Labs remarkable for ESR 25 CRP 10.47. U/S negative for DVT. PT is a full code and IND with ADLs. 20g R AC. Meds given Vanco, Ancef, Zosyn
--- NOTE | 2025-03-07 07:11 | PHA.PROG ---
Admission Date/Time: March 06, 2025 23:44 Indication: Skin Weight in k.1 kg Adjusted body weight in Kg: [place] body weight in Kg: Obesity Dosing Indication % IBW: Serum Creatinine - Last 168 Hours 03/06/25 03/07/25 17:43 04:24 Creatinine 1.00 0.97 Estimated CrCl and GFR - Last 168 Hours 03/06/25 03/07/25 17:43 04:24 Estim Creat Clear Calc 111.3 114.8 Estimated GFR > 60 > 60 Vancomycin Loading Dose: 2000 mg Current Vancomycin Dosing Regimen: 1250 mg Q12H Vancomycin Monitoring using AUC goal of 400 - 600 range with trough as surrogate marker: Predicted AUC 519, trough 16.4 Date and Time for next Vancomycin Level to be drawn: 03/08 @0700 Pharmacist Comments on Vancomycin Plan: Vancomycin dosing will take advantage of [employer] as a clinical decision support tool that uses Bayesian modeling to calculate individual patient's pharmacokinetic parameters and forecast the patient's drug concentration time course with the target goal AUC 24 range of 400 - 600 mg/L/hr.
--- NOTE | 2025-03-07 07:18 | PC.NURSE ---
Patient is a 49 years old male with significant history of cellulitis presents to the emergency department complaining of worsening left leg pain, swelling and redness. Patient said that early February he was in [place] and had an insect bite over the left lower leg. Last Wednesday he visited an urgent care and was prescribed with Keflex. On Wednesday, Bactrim was prescribed as the infection was not getting better. There are no leukocytosis, bandemia or lactic acidosis. ESR and CRP are both elevated. Patient alert and oriented. Lungs clear bilat. Respirations even and non-labored. Abdomen soft, non-tender with positive bowel sounds. Positive pedal pulses. Right LE, reddened, warm and swollen with 2 blisters noted. Pain 3/10 at rest but increases with ambulation.
--- NOTE | 2025-03-07 08:13 | PHA.MEDREC ---
Addendum entered by Neri Bello PharmD 03/07/25 08:16: reviewed Original Note: Pharmacy Consult ? Medication Reconciliation Pharmacy has completed the medication reconciliation. Patient was able to name all his medications. Patient confirmed Testosterone cyp 150 mg q2w ,last dose a week in a half ago.
--- NOTE | 2025-03-07 08:31 | PM.CNGS ---
History of Present Illness Consult details Consult date: 03/07/25 Narrative: 49-year-old male here in the ER for right leg cellulitis. He says that about 10 days ago, he would notice what he thought was a small bug bite near the ankle on the right leg. He says 3 days later, the lower leg seemed to be red and he says that this has slowly been extending to the thigh. He was started his doctor. However, the past 2-3 days he has noticed another area above the 1st lesion. This appeared to have a little bit of pus The cellulitis in his leg worsened so he came to the ER last night. He denies any other trauma. He has denies being a diabetic. He denies any fever or chills. Review of Systems Constitutional: Constitutional: Denies chills and Denies fever(s) Cardiovascular: Cardiovascular: Denies chest pain, Denies dyspnea and Denies dyspnea on exertion Respiratory: Respiratory: Denies cough, Denies dyspnea and Denies dyspnea on exertion Gastrointestinal: Gastrointestinal: Denies hematochezia and Denies change in bowel habits Genitourinary: Genitourinary: Denies hematuria and Denies difficulty urinating Musculoskeletal: Musculoskeletal: Denies back pain and Denies limited range of motion Neurologic: Denies focal weakness and Denies convulsions Psychiatric: Psychiatric: Denies depression and Denies mood swings PMFSH Past Medical History Medical History Carbuncle Social History Social History Household Members: None Housing: House Do you presently have visiting nurse or other home services: No Patient Tobacco Use Status: Never used Tobacco service: Yes Meds Allergies Allergy/AdvReac Type Severity Reaction Status Date / Time No Known Allergies Allergy Verified 03/06/25 16:37 Active Medications: Current Medications Acetaminophen (Acetaminophen 325 Mg Tablet) 975 mg PO Q6H PRN PRN Reason: Pain, Mild 1-3,fever,headache Calcium Carbonate (Calcium Carbonate 750 Mg Tab.Chew) 750 mg PO Q4H PRN PRN Reason: Heartburn Enoxaparin Sodium (Enoxaparin Sodium 40 Mg/0.4 Ml Syringe) 40 mg SUBCUT Q24H [facility] Piperacillin Sod/Tazobactam (Sod 3.375 gm/ Sodium Chloride) 50 mls @ 100 mls/hr IV Q6H [facility] Last Infusion: 03/07/25 06:46 Dose: Infused Vancomycin HCl 1,250 mg/ (Sodium Chloride) 250 mls @ 166.667 mls/hr IV Q12H [facility] Magnesium Hydroxide (Milk Of Magnesia 30 Ml Oral.Susp) 30 ml PO DAILY PRN PRN Reason: Constipation Melatonin (Melatonin 3 Mg Tablet) 6 mg PO BEDTIME PRN PRN Reason: Insomnia Oxycodone HCl (Oxycodone Hcl Immed Release 5 Mg Tablet) 5 mg PO Q6H PRN PRN Reason: right leg pain Pharmacy Consult (Consult Rx Vancomycin Dosing) 1 each MISCELLANE DAILY PRN PRN Reason: Consult order Sodium Chloride (0.9 % Sodium Chloride Flush 3 Ml Syringe) 3 ml IVFLUSH QSHIFT [facility] Last Admin: 03/07/25 07:16 Dose: 3 ml Home Medications ?Medication ?Instructions ?Recorded ?Confirmed ?Last Taken ?Type cephalexin 500 mg capsule 500 mg PO BID 03/07/25 03/07/25 03/06/25 History sulfamethoxazole 800 1 tab PO BID 03/07/25 03/07/25 03/06/25 History mg-trimethoprim 160 mg tablet testosterone cypionate 100 mg/mL 150 mg IM Q2W 03/07/25 03/07/25 02/25/25 History intramuscular oil Physical Exam Vital Signs: Vital Signs: Last Vital Signs Temp 98.6 F 03/07/25 06:15 Pulse 81 03/07/25 08:00 Resp 16 03/07/25 08:00 BP 125/79 03/07/25 08:00 Pulse Ox 97 03/07/25 08:00 O2 Del Method Room Air 03/07/25 08:00 BMI result Body Mass Index 28.5 Const: General: comfortable and no acute distress Orientation/consciousness: patient oriented x3 Neck: Neck: Yes no lymphadenopathy Resp: Auscultation: clear to auscultation bilaterally Cardio: Rhythm: regular rhythm GI: Palpation (GI): Soft to palpation, nontender and no guarding Neuro: General: patient oriented x3 Extrem: Other: Right lower leg with cellulitic changes distally near the ankle. There was note of 1 area above the ankle with multiple superficial pus pockets consistent with a carbuncle. Below this is note of a smaller area as well that seems to have recently drained. He has no other area of fluctuance Results Labs 03/07/25 04:24 03/07/25 04:24 Labs: Abnormal lab results 03/06/25 03/07/25 Range/Units 17:43 04:24 RBC 4.20 L 4.20 L (4.60-5.80) X10*6/uL Hgb 13.6 L 13.4 L (14.0-18.0) g/dl Hct 39.2 L 39.3 L (42.0-52.0) % Lymph % (Auto) 16.7 L 18.8 L (20-40) % [place] % (Auto) 12.2 H 16.2 H (2-11) % ESR 25 H (0-15) MM/HR Anion Gap 11 L 10 L (12-20) C-Reactive Protein 10.47 H (< or = 0.50) mg/dL Short CBC 03/06/25 03/07/25 Range/Units 17:43 04:24 WBC 8.4 7.2 (4.8-10.8) X10*3/uL Hgb 13.6 L 13.4 L (14.0-18.0) g/dl Hct 39.2 L 39.3 L (42.0-52.0) % Plt Count 203 205 (160-400) X10*3/uL BMP 03/06/25 03/07/25 17:43 04:24 Sodium 139 139 Potassium 4.4 3.8 Chloride 105 108 Carbon Dioxide 27 25 BUN 11 9 Creatinine 1.00 0.97 Calcium 9.0 8.6 Liver Function 03/06/25 Range/Units 17:43 Total Bilirubin 0.5 (0.0-1.0) mg/dL Direct Bilirubin 0.2 (0.0-0.5) mg/dL AST 27 (5-37) U/L ALT 32 (0-40) U/L Alkaline Phosphatase 67 (39-117) U/L Albumin 4.3 (3.5-5.0) g/dL All other labs normal. Assessment and Plan (1) Carbuncle: Status: Acute Plan He has what appears to be a carbuncle with multiple small pus pockets. This entire areas about 2 cm in diameter. I explained to him it may be best to open up this pus pockets. I explained the technique of I and D. I reviewed the risks, benefits, alternatives and he had given verbal consent I&D was done of these multiple small pockets using a gauge 18 needle. Cultures were taken. He tolerated procedure well. I applied dry dressings We should follow up on cultures and do dressing changes daily. He understands the plan well. Procedures Date of Service Date of Service: 03/07/25 Abscess I/D Consent for Procedure: Elective - informed consent obtained Site: lower extremity Side (if applicable): right Sedation/analgesia: none Packing used?: none Additional comments: The area was draped. Since the pus pockets were superficial, I did not use lidocaine. I opened up these multiple pus pockets with a gauge 18 needle. Cultures were taken. Dressings were applied. He tolerated procedure well.
--- NOTE | 2025-03-07 09:36 | MHC.CM.PN ---
CM met with Patient at bedside, in the ED. Patient lives alone in a house and is functionally independent. Home/self care is Patient's goal and CM has initiated and will follow for dc planning. PCP is Dr. Patel Owen, in [facility], where Patient lives. Patient's car is here for transport to home at dc.
[2025-03-08 03:34] VITALS: BP 133/78; PULSE 66; RESP 18; TEMP 36.2; O2SAT 98
[2025-03-08 06:34] LABS: Creatinine Clr Calc Pharmacy 112.5; Estimated Glomerular Filt Rate > 60
[2025-03-08 07:36] VITALS: BP 133/68; PULSE 70; RESP 18; TEMP 36.4; O2SAT 94
[2025-03-08 07:46] VITALS: BP 133/68; PULSE 70; RESP 18; TEMP 36.4; O2SAT 94
--- NOTE | 2025-03-08 07:53 | P.PNIM_ITS ---
Subjective Subjective Date of Service: 03/08/25 Physical Exam 2 Vital Signs: Vital Signs: Last Vital Signs Temp 97.5 F 03/08/25 07:46 Pulse 70 03/08/25 07:46 Resp 18 03/08/25 07:46 BP 133/68 03/08/25 07:46 Pulse Ox 94 03/08/25 07:46 O2 Del Method Room Air 03/08/25 07:46 BMI result Body Mass Index 28.5 Objective Data Active Medications Acetaminophen (Acetaminophen 325 Mg Tablet) 975 mg PO Q6H PRN PRN Reason: Pain, Mild 1-3,fever,headache Calcium Carbonate (Calcium Carbonate 750 Mg Tab.Chew) 750 mg PO Q4H PRN PRN Reason: Heartburn Enoxaparin Sodium (Enoxaparin Sodium 40 Mg/0.4 Ml Syringe) 40 mg SUBCUT Q24H [facility] Last Admin: 03/07/25 09:18 Dose: Not Given Documented By: EVARISTO Non-Admin Reason: Patient Refused Piperacillin Sod/Tazobactam (Sod 3.375 gm/ Sodium Chloride) 50 mls @ 100 mls/hr IV Q6H [facility] Last Infusion: 03/08/25 03:21 Dose: Infused Documented By: EDILIA Magnesium Hydroxide (Milk Of Magnesia 30 Ml Oral.Susp) 30 ml PO DAILY PRN PRN Reason: Constipation Melatonin (Melatonin 3 Mg Tablet) 6 mg PO BEDTIME PRN PRN Reason: Insomnia Oxycodone HCl (Oxycodone Hcl Immed Release 5 Mg Tablet) 5 mg PO Q6H PRN PRN Reason: right leg pain Sodium Chloride (0.9 % Sodium Chloride Flush 3 Ml Syringe) 3 ml IVFLUSH QSHIFT [facility] Last Admin: 03/07/25 21:27 Dose: 3 ml Documented By: EDILIA Labs 03/07/25 04:24 03/08/25 05:53 Labs: Laboratory Results - last 24 hr 03/08/25 03/08/25 05:52 05:53 Hold Purple Top SEE NOTE Estim Creat Clear Calc 112.5 Estimated GFR > 60 Microbiology Microbiology Results: Microbiology 03/06/25 20:35 Blood Culture - Preliminary Blood - Venous No growth after 24 hours. 03/06/25 17:43 Blood Culture - Preliminary Blood - Venous No growth after 24 hours. 03/07/25 09:19 Gram Stain - Final Leg Right Quality Stroke Does the patient have a stroke diagnosis?: No VTE Prior VTE?: No VTE Risk Level:: Medical - moderate - high VTE Device Contraindication: Treatment Not Indicated VTE Drug Contraindication: N/A - Med Ordered
--- NOTE | 2025-03-08 08:12 | PHA.PROG ---
Admission Date/Time: March 06, 2025 23:44 Indication: BONE & JOINT Weight in k.1 kg Adjusted body weight in K.18 [place] body weight in K.9 Obesity Dosing Indication % IBW: 28.5 Serum Creatinine - Last 168 Hours 03/06/25 03/07/25 03/08/25 17:43 04:24 05:53 Creatinine 1.00 0.97 0.99 Estimated CrCl and GFR - Last 168 Hours 03/06/25 03/07/25 03/08/25 17:43 04:24 05:53 Estim Creat Clear Calc 111.3 114.8 112.5 Estimated GFR > 60 > 60 > 60 Vancomycin Loading Dose: 2000 Current Vancomycin Dosing Regimen: 1250 MG Q12 Vancomycin Monitoring using AUC goal of 400 - 600 range with trough as surrogate marker: /16.8 Date and Time for next Vancomycin Level to be drawn: 03/08 @ 1700 Pharmacist Comments on Vancomycin Plan: PT WAS STARTED AND STOPPED 03/06 AND 03/07 ON VANCOMYCIN BUT ONLY 12 HOURS BETWEEN LAST DOSE SO RESTARTED LAST DOSING REGIMEN AND WILL OBTAIN TROUGH BEFORE 4TH DOSE TO ENSURE APPROPRIATE DOSING. Vancomycin dosing will take advantage of [employer] as a clinical decision support tool that uses Bayesian modeling to calculate individual patient's pharmacokinetic parameters and forecast the patient's drug concentration time course with the target goal AUC 24 range of 400 - 600 mg/L/hr.
--- NOTE | 2025-03-08 08:13 | PM.PNGS ---
Subjective Subjective Date of Service: 03/08/25 <Cherry Stock PA-C - Last Filed: 03/08/25 08:17> 03/08/25 <Mike Patterson MD - Last Filed: 03/08/25 09:40> Interval history: Reports general discomfort of right leg. He thinks the redness is overall improved. States he is leaving today. <Cherry Stock PA-C - Last Filed: 03/08/25 08:17> Physical Exam Vital Signs: Vital Signs: Last Vital Signs Temp 97.5 F 03/08/25 07:46 Pulse 70 03/08/25 07:46 Resp 18 03/08/25 07:46 BP 133/68 03/08/25 07:46 Pulse Ox 94 03/08/25 07:46 O2 Del Method Room Air 03/08/25 07:46 BMI result Body Mass Index 28.5 <Cherry Stock PA-C - Last Filed: 03/08/25 08:17> Const: General: comfortable, no acute distress and alert <Cherry Stock PA-C - Last Filed: 03/08/25 08:17> Orientation/consciousness: patient oriented x3 <Cherry Stock PA-C - Last Filed: 03/08/25 08:17> Skin: Other: warm and dry except as noted below <Cherry Stock PA-C - Last Filed: 03/08/25 08:17> Neuro: General: patient oriented x3 and moves all extremities <Cherry Stock PA-C - Last Filed: 03/08/25 08:17> Extrem: Other: right leg - continues with extensive erythema and edema/induration extending from ankle to distal femur medially - I&D site with scant amount of purulent drainage, dressing reapplied <DIANA Sun Last Filed: 03/08/25 08:17> Objective Data Active Medications Acetaminophen (Acetaminophen 325 Mg Tablet) 975 mg PO Q6H PRN PRN Reason: Pain, Mild 1-3,fever,headache Calcium Carbonate (Calcium Carbonate 750 Mg Tab.Chew) 750 mg PO Q4H PRN PRN Reason: Heartburn Enoxaparin Sodium (Enoxaparin Sodium 40 Mg/0.4 Ml Syringe) 40 mg SUBCUT Q24H [facility] Last Admin: 03/07/25 09:18 Dose: Not Given Documented By: EVARISTO Non-Admin Reason: Patient Refused Piperacillin Sod/Tazobactam (Sod 3.375 gm/ Sodium Chloride) 50 mls @ 100 mls/hr IV Q6H [facility] Last Infusion: 03/08/25 03:21 Dose: Infused Documented By: EDILIA Vancomycin HCl 1,250 mg/ (Sodium Chloride) 250 mls @ 166.667 mls/hr IV Q12H [facility] Magnesium Hydroxide (Milk Of Magnesia 30 Ml Oral.Susp) 30 ml PO DAILY PRN PRN Reason: Constipation Melatonin (Melatonin 3 Mg Tablet) 6 mg PO BEDTIME PRN PRN Reason: Insomnia Oxycodone HCl (Oxycodone Hcl Immed Release 5 Mg Tablet) 5 mg PO Q6H PRN PRN Reason: right leg pain Pharmacy Consult (Consult Rx Vancomycin Dosing) 1 each MISCELLANE DAILY PRN PRN Reason: Consult order Sodium Chloride (0.9 % Sodium Chloride Flush 3 Ml Syringe) 3 ml IVFLUSH QSHIFT [facility] Last Admin: 03/07/25 21:27 Dose: 3 ml Documented By: EDILIA <Cherry Stock PA-C - Last Filed: 03/08/25 08:17> Labs CBC & Chem 7: 03/08/25 08:16 03/08/25 08:15 <Cherry Stock PA-C - Last Filed: 03/08/25 08:17> Labs: Laboratory Results - last 24 hr 03/08/25 03/08/25 05:52 05:53 Hold Purple Top SEE NOTE Estim Creat Clear Calc 112.5 Estimated GFR > 60 <DIANA Sun Last Filed: 03/08/25 08:17> Microbiology Microbiology Results: Microbiology 03/06/25 20:35 Blood Culture - Preliminary Blood - Venous No growth after 24 hours. 03/06/25 17:43 Blood Culture - Preliminary Blood - Venous No growth after 24 hours. 03/07/25 09:19 Gram Stain - Final Leg Right <DIANA Sun Last Filed: 03/08/25 08:17> Procedures Date of Service Date of Service: 03/08/25 <Cherry Stock PA-C - Last Filed: 03/08/25 08:17> 03/08/25 <Mike Patterson MD - Last Filed: 03/08/25 09:40> Progress Note: A&P Assessment and plan (1) Cellulitis of right lower extremity: Status: Acute <Cherry Stock PA-C - Last Filed: 03/08/25 08:17> Assessment and Plan: He states that he is feeling much better today His says with the redness in the lower leg has improved significantly He has pain level has also improved There is still some residual redness on the lower leg although this is much better Mild residual induration on the I&D site He says that he feels that he is ready to be discharged If he is to be discharged today, I would recommend keeping him until later in the day so he can get additional IV antibiotics He should be on p.o. doxycycline or Augmentin on discharge I explained to him that he can do dry dressing changes on the area He lives in [place] and I explained to him that he should follow up his physician as soon as he gets there I have seen and examined him independently <Mike Patterson MD - Last Filed: 03/08/25 09:40> (2) Carbuncle: Status: Acute <Cherry Stock PA-C - Last Filed: 03/08/25 08:17> Assessment and Plan: Has continued significant cellulitic changes of right lower extremity. I&D site with scant purulent drainage, cont local wound care with dry dressing change daily. Encouraged to elevate right leg at rest to reduce edema. Recommend cont IV abx for at least another day. <Cherry Stock PA-C - Last Filed: 03/08/25 08:17> Time Spent With Patient Time: Total time managing care of this patient today ____ minutes. <Cherry Stock PA-C - Last Filed: 03/08/25 08:17> Quality Stroke Does the patient have a stroke diagnosis?: No <Cherry Stock PA-C - Last Filed: 03/08/25 08:17> VTE Prior VTE?: No <Cherry Stock PA-C - Last Filed: 03/08/25 08:17> VTE Risk Level:: Medical - moderate - high <Cherry Stock PA-C - Last Filed: 03/08/25 08:17> VTE Device Contraindication: Treatment Not Indicated <Cherry Stock PA-C - Last Filed: 03/08/25 08:17> VTE Drug Contraindication: N/A - Med Ordered <Cherry Stock PA-C - Last Filed: 03/08/25 08:17>
[2025-03-08 08:19] LABS: Magnesium 1.9 mg/dL (1.6-2.6)
[2025-03-08 08:29] LABS: MANUAL DIFF FLAG NO
[2025-03-08 08:36] LABS: Hematocrit 41.6 % (42.0-52.0); Hemoglobin 14.2 g/dl (14.0-18.0); Mean Corpuscular HGB Conc 34.1 g/dl (31.0-36.0); Mean Corpuscular Hemoglobin 32.1 pg (27.0-33.0); Mean Corpuscular Volume 94.1 fL (80.0-98.0); Red Blood Count 4.42 X10*6/uL (4.60-5.80); White Blood Count 7.3 X10*3/uL (4.8-10.8)
[2025-03-08 08:37] LABS: Imm Gran Abs Auto 0.03 X10*3/uL (0.00-0.03); Imm Gran Pct Auto 0.4 % (0.0-0.4); Lymphocytes Absolute Auto 1.6 X10*3/uL (1.2-4.9); NRBC Abs Auto 0.000 X10*3/uL (0.0-0.012); NRBC Pct Auto 0.0 /100WBC (0.0-0.2); Platelet Count 242 X10*3/uL (160-400)
[2025-03-08 08:49] LABS: Alanine Aminotransferase 27 U/L (0-40); Albumin Level 4.1 g/dL (3.5-5.0); Alkaline Phosphatase 63 U/L (39-117); Anion Gap 11 (12-20); Aspartate Amino Transferase 19 U/L (5-37); Blood Urea Nitrogen 7 mg/dL (9-16); Calcium 9.1 mg/dL (8.4-10.2); Carbon Dioxide 26 mmol/L (22-29); Chloride 107 mmol/L (96-108); Creatinine Clr Calc Pharmacy 111.3; Estimated Glomerular Filt Rate > 60; Potassium 4.2 mmol/L (3.3-5.1); Sodium 140 mmol/L (135-145); Total Protein 7.1 g/dL (6.5-8.0)
[2025-03-08] MEDS: Sulfamethox/Trimeth 800/160 TABLET 1 TAB PO (10:44)
[2025-03-08] MEDS: 0.9 % Sodium Chloride Flush 3 ML SYRINGE IVFLUSH (10:48)
[2025-03-08 11:35] VITALS: BP 143/84; PULSE 68; RESP 16; TEMP 36.2; O2SAT 98
--- NOTE | 2025-03-08 11:35 | HE.PHANOTE ---
RE ONE TIME DOSE OF VANCO AND ZOSYN PER TIGER TEXT BETWEEN PIYUSH DAVILA AND DR PENA (FORWARDED TO ME) ACTIVATED ONE TIME DOSE OF ZOSYN AND VANCOMYCIN TO BE GIVEN PRIOR TO PATIENT DISCHARGE
--- NOTE | 2025-03-08 12:26 | P.DS_ITS ---
DS: Providers Provider Date of Service: 03/08/25 Date of admission: 03/06/25 23:44 Date of discharge: 03/08/25 Primary care physician: Patel Owen Consults: 03/07/25 00:15 Consult to General Surgery Routine Consulting Provider[place] [facility] [place] [facility] Reason for consultation: ?abscess RLE Has provider been notified: No DS: Diagnosis Discharge Diagnosis (1) Cellulitis of right lower extremity: Status: Acute (2) Carbuncle: Status: Acute DS: Summary Hospital Course Hospital Course: Right lower extremity cellulitis after insect bite, failing outpatient antibiotic requiring inpatient admission, I and D Right lower extremity cellulitis after insect bite that gradually worsened despite 3 days of OP abx ( Failed Bactrim and Keflex) and was admitted on evening of 03/06/2025. Patient was treated with a day and a half of antibiotics. Sepsis workup thus far was unremarkable. Patient likely had a small abscess requiring I and D by surgery. Did not have any severe hemodynamic compromise or overt signs of sepsis. Although I insisted the patient stay for a day more to get wound culture and sepsis workup, patient insisted on being discharged. Patient is being placed on Augmentin and doxycycline for 7 more days. Patient has been advised about watching for signs of worsening sepsis or poor response to p.o. antibiotics in his being advised to reach out to ED if his clinical status worsens. Patient is aware that he is from out of [facility] and would not be able to follow locally. Patient was maintained with DVT prophylaxis on Lovenox while inpatient Time spent discussing smoking cessation with patient: more than 10 minutes Time Attestation Discharge Coordination Time (in mins): 35 Quality: Safe Use of Opioids Does Pt have an Active Cancer Diagnosis on the Problem List?: No Quality: Stroke Does the patient have a stroke diagnosis?: No Physical Exam Vital Signs: Vital Signs: Last Vital Signs Temp 97.1 F 03/08/25 11:35 Pulse 68 03/08/25 11:35 Resp 16 03/08/25 11:35 BP 143/84 H 03/08/25 11:35 Pulse Ox 98 03/08/25 11:35 O2 Del Method Room Air 03/08/25 11:35 BMI result Body Mass Index 28.5 DS: Data Data Completed and Pending Labs on day of discharge: Laboratory Results - last 24 hr 03/08/25 03/08/2525 05:52 05:53 08:15 WBC RBC Hgb Hct MCV MCH MCHC RDW Plt Count MPV Immature Gran % (Auto) Neut % (Auto) Lymph % (Auto) [place] % (Auto) Eos % (Auto) Baso % (Auto) Lymph # (Auto) [place] # (Auto) Eos # (Auto) Baso # (Auto) Abs Immat Gran (auto) Absolute Neuts (auto) Absolute Nucleated RBC Nucleated RBC % (auto) Hold Purple Top SEE NOTE Sodium 140 Potassium 4.2 Chloride 107 Carbon Dioxide 26 Anion Gap 11 L BUN 7 L Creatinine 0.99 1.00 Estim Creat Clear Calc 112.5 111.3 Estimated GFR > 60 > 60 Random Glucose 111 Calcium 9.1 Magnesium 1.9 Total Bilirubin 0.5 AST 19 ALT 27 Alkaline Phosphatase 63 Total Protein 7.1 Albumin 4.1 03/08/25 08:16 WBC 7.3 RBC 4.42 L Hgb 14.2 Hct 41.6 L MCV 94.1 MCH 32.1 MCHC 34.1 RDW 12.8 Plt Count 242 MPV 10.2 Immature Gran % (Auto) 0.4 Neut % (Auto) 65.0 Lymph % (Auto) 21.3 [place] % (Auto) 12.6 H Eos % (Auto) 0.0 Baso % (Auto) 0.7 Lymph # (Auto) 1.6 [place] # (Auto) 0.9 Eos # (Auto) 0.0 Baso # (Auto) 0.1 Abs Immat Gran (auto) 0.03 Absolute Neuts (auto) 4.7 Absolute Nucleated RBC 0.000 Nucleated RBC % (auto) 0.0 Hold Purple Top Sodium Potassium Chloride Carbon Dioxide Anion Gap BUN Creatinine Estim Creat Clear Calc Estimated GFR Random Glucose Calcium Magnesium Total Bilirubin AST ALT Alkaline Phosphatase Total Protein Albumin Preliminary micro results at discharge 03/07/25 00:23 MRSA Culture - Preliminary Nares Culture in progress. 03/07/25 09:19 Routine Culture - Preliminary Leg Right No growth to date. 03/06/25 20:35 Blood Culture - Preliminary Blood - Venous No growth after 24 hours. 03/06/25 17:43 Blood Culture - Preliminary Blood - Venous No growth after 24 hours. Discharge Plan Discharge Anticipated Discharge Date/Time: 03/08/25 08:49 Patient Disposition: Home, Self-Care Discharge Diagnosis: Cellulitis /abscess of right lower extremity after failing outpatient antibiotic requiring I and D Referrals: Patel Owen [Other] - 1 Week Discharge Medications: New amoxicillin-pot clavulanate 875-125 mg Tablet 1 tab PO Q12H 7 Days Qty: 14 0RF Continued testosterone cypionate 100 mg/mL oil 150 mg IM Q2W Rx Instructions: INJECT 1.5 ML INTO THE SHOULDER, THIGH, OR BUTTOCKS EVERY 14 DAYS. DISCARD VIAL AFTER 28 DAYS sulfamethoxazole-trimethoprim 800-160 mg tablet 1 tab PO BID 7 Days Qty: 14 0RF Discontinued cephalexin 500 mg capsule 500 mg PO BID Discharge Orders: Discharge Order (Routine); Ordered 03/08/25 Ordered By: Missy Tello Diet: Advance to usual diet Activity on Discharge: As tolerated Stand Alone Forms: Patient Portal Discharge page Print Language: Urdu Care Plan Goals: Discharge Instructions: Skin Cellulitis Diagnosis: You have been diagnosed with cellulitis, a skin infection caused by streptococcal bacteria. Medications: * Take all prescribed antibiotics exactly as directed. Do not skip doses and complete the entire course, even if you start to feel better. * Take pain relievers (such as acetaminophen or ibuprofen) as needed for discomfort, unless contraindicated. Wound Care: * Keep the affected area clean and dry. * If a dressing was applied, change it as instructed and watch for signs of increased drainage or odor. * Wash your hands before and after touching the affected area. Activity: * Elevate the affected limb as much as possible to reduce swelling. * Limit strenuous activity until the infection improves. Monitoring: * Jose the edges of the redness/swelling with a pen. Monitor daily to see if the area is expanding. * Watch for signs of worsening infection, such as: * Increasing redness, swelling, or pain * Pus or foul-smelling drainage * Fever or chills * Red streaks spreading from the area * New blisters or skin breakdown When to Seek Immediate Medical Attention: * High fever (>=01.5?F/38.6?C) * Rapidly spreading redness or swelling * Difficulty breathing or swallowing (if the infection is near the face or neck) * Severe pain or inability to move the affected area * Signs of systemic illness (confusion, dizziness, rapid heartbeat) Follow-Up: * Schedule a follow-up appointment as directed to ensure the infection is resolving. * If symptoms are not improving within 48?72 hours, or if they worsen, seek medical attention promptly. Prevention: * Keep skin clean and moisturized. * Treat minor cuts, scrapes, or insect bites promptly. * Avoid scratching or picking at the skin. Health Concerns: See above Plan of Treatment: See above Assessment: See above Patient Instructions: Connective Tissue Disorders (ED), Acute Wounds (DC)
--- NOTE | 2025-03-08 14:28 | MHC.CM.PN ---
PT TO DC HOME TODAY VIA SELF TRANSPORT NO SERVICES INDICATED
== END 2025-03-08 15:37 | disposition home or self-care (01) | DRG 383 ==
LOC: HO.ED 23:09 → HO.EDOVER 23:46 → HO.S3 03-07 11:56
PROVIDERS: Physician Assistant Medical; Admitting Provider Internal Medicine; Emergency Provider Student in an Organized Health Care Education/Training Program; Visit Provider Student in an Organized Health Care Education/Training Program
DX: L03.115 Cellulitis of right lower limb (principal); W57.XXXA Bitten or stung by nonvenomous insect and other nonvenomous arthropods, initial encounter; Z79.899 Other long term (current) drug therapy
CPT/HCPCS: 36415; 80048; 80053; 80076; 82565; 83605; 83735; 85025; 85652; 86140; 87040; 87070; 87081; 87205; 93971; 99285; J0690; J2543; J3373; J3374

== ENCOUNTER → 2025-03-06 20:20 | Outpatient (BNV) | payer BC, OTHER, SELFPAY | PROVIDERS: Emergency Provider Student in an Organized Health Care Education/Training Program; Visit Provider Radiology Diagnostic Radiology | DX: R22.41 Localized swelling, mass and lump, right lower limb (principal) | CPT/HCPCS: 93971 ==

== ENCOUNTER → 2025-03-06 23:44 | Outpatient (BNV) | payer BC, SELFPAY | PROVIDERS: Admitting Provider Internal Medicine; Emergency Provider Student in an Organized Health Care Education/Training Program; Visit Provider Surgery | DX: L02.93 Carbuncle, unspecified (principal) | CPT/HCPCS: 10060; 99253 ==

== ENCOUNTER → 2025-03-06 23:44 | Outpatient (BNV) | payer BC, OTHER, SELFPAY | PROVIDERS: Admitting Provider Internal Medicine; Emergency Provider Student in an Organized Health Care Education/Training Program; Visit Provider Internal Medicine | DX: L03.115 Cellulitis of right lower limb (principal); L02.93 Carbuncle, unspecified | CPT/HCPCS: 99222; 99239 ==